=== PATIENT | female | born 2005 | race Caucasian/White ===

== ENCOUNTER 2025-03-11 04:53 | Inpatient (IN) | payer OTHER, MEDICAID, SELFPAY ==
[2025-03-11] VITALS (181 sets, daily range): BP systolic 99–158; BP diastolic 49–127; PULSE 59–163; RESP 14; TEMP 36.2–38.2; O2SAT 94–100; BMI 29.3
--- OUTSIDE RECORDS SUMMARY | 2025-03-11 05:01 | XMS_ITS | Clinical Summary ---
Author Organization [facility] Address [facility] [place] [address] Care Team Providers Care Director Cardiac Name Role Phone Harshal Vaughan MD Primary Care Provider + Allergies No known active allergies Medications No known medications Active Problems Problem Noted Date Diagnosed Date Mood disorder 05/14/2019 Resolved Problems Problem Noted Date Diagnosed Date Resolved Date No known health problems 04/27/201605/2020 Immunizations Immunization Administration Dates Next Due Dtap 2004 Dtap/Hep B/Ipv 11/29/2008, 7,2004,1999 Fluzone (IIV3, Trivalent, 0. 5 ML Prefilled Syringe) 06/25/2024 HPV4 (Gardasil) 08/08/2017,04/26/2016 Hepatitis A Vaccine - 2 Dose 02/15/2010,11/30/19 09 Hepatitis B 06/22/2007, 7,2004,2003 Hepatitis B (Generic Peds) 2004,2004 Hib 2004 Hib Vaccine, Prp-Omp 06/22/2007,2004 Influenza Adult (Generic) 06/03/2023,04/26/2016 MMR (Generic) 11/29/2008,05/18/2000 Menactra 04/26/2016 PFIZER COVID-19 (12+) MRNA, LNP-S, PF, BOGDAN-SUCROSE, 30 MCG/0.3 ML (COMIRNATY) 06/25/2024 Pneumococcal (Prevnar 13) 2004 Pneumococcal (Prevnar 7) 2004 Polio Ipv (Generic) 02/15/2010, 9,06/22/2007,2004,2004 Tdap (Generic) 04/26/2016,04/26/2016 Varicella Vaccine 11/29/2008,05/18/2000 Family History Medical History Relation Comments Drug Abuse Maternal Grandfather Hypertension Maternal Grandfather Alcohol Abuse Maternal Grandmother dysplasia Mother Lung Disease Paternal Grandfather None Neg Hx Relation Status Comments Maternal Grandfather Maternal Grandmother Mother Paternal Grandfather Social History Tobacco Use Types Packs/Day Years Used Date Smoking Tobacco: Never Passive Smoke Exposure: Never Smokeless Tobacco: Never Alcohol Use Standard Drinks/Week Comments No 0 (1 standard drink = 0.6 oz pur e alcohol) AUDIT-C Answer Date Recorded Frequency of Alcohol Consumption Never 03/05/2019 Average Number of Drinks Not on file 019 Frequency of Binge Drinking Not on file 03/2019 PHQ-2 Answer Date Recorded Patient Health Questionnaire-2 Score 0 07/01/2023 Comments No Sex and Gender Information Value Date Recorded Sex Assigned at Not on file Legal Sex Female 11:22 PM CDT Gender Identity Not on file Sexual Orientation Not on file Last Filed Vital Signs Vital Sign Reading Time Taken Comments Blood Pressure 118/76 06/23/2024 7:27 AM ENTERPRISE INTEGRATION ARCHITECT Pulse 105 06/23/2024 7:27 AM ENTERPRISE INTEGRATION ARCHITECT Temperature 36.2 C (97.1 F) 06/23/2024 7:27 AM ENTERPRISE INTEGRATION ARCHITECT Respiratory Rate 18 06/23/2024 7:27 AM ENTERPRISE INTEGRATION ARCHITECT Oxygen Saturation 99% 06/23/2024 7:27 AM ENTERPRISE INTEGRATION ARCHITECT Inhaled Oxygen Concentration - - Weight 50.6 kg (111 lb 9.6 oz) 06/23/2024 7:27 A M ENTERPRISE INTEGRATION ARCHITECT Height 154.9 cm (5' 1) 06/23/2024 7:27 AM ENTERPRISE INTEGRATION ARCHITECT Body Mass Index 21.09 06/23/2024 7:27 AM ENTERPRISE INTEGRATION ARCHITECT Plan of Treatment Health Maintenance Due Date Last Done Comments Annual Physical 03/05/2020 03/05/2019 Meningococcal B Vaccine (1 of 2 - Standard) 2020 Hepatitis C 2022 PHQ-2 (Physician [place]) 07/28/2024 07/01/2023 DTaP, Tdap and Td Vaccines (6 - Td or Tdap) 04/26/2026 04/26/2016, 04/26/2016, 11/29/2008, Additional history exists Pneumococcal Vaccine: Pediatrics (0 to 5 Years) and At-Risk Patients (6 to 49 Years) Aged Out 2004, 2004 No longer eligibl e based on patient's age to complete this topic Hepatitis B Vaccines Completed 11/29/2008, 06/22/2007, 06/22/2007, Additional history exists Meningococcal Vaccine Aged Out 04/26/2016 No alia brian eligible based on patient's age to complete this topic HPV Vaccines Completed 08/08/2017, 04/26/2016 COVID-19 Vaccine Completed 06/25/2024, 02/15/2021 RSV Immunizations Under 20 Months Aged Out No longer eligible based on patient's age to complete this topic Insurance [facility] Care Teams Director Cardiac Relationship Specialty Start Date End Date Harshal Vaughan MD [address] [facility] [address] [place] [address] PCP - General FAMILY PRACTICE 03/03/19
--- OUTSIDE RECORDS SUMMARY | 2025-03-11 05:01 | XMS_ITS | Clinical Summary ---
Author Organization [facility] Address [address] [place] [address] Care Team Providers Care Automobile Repair Service Estimator Name Role Phone Unavailable Primary Care Provider Unavailabl e Social History Tobacco Use Types Packs/Day Years Used Date Smoking Tobacco: Never Assessed Comments Unknown Sex and Gender Information Value Date Recorded Sex Assigned at Not on file Legal Sex Female 10:54 AM CDT Gender Identity Not on file Sexual Orientation Not on file Plan of Treatment Health Maintenance Due Date Last Done Comments Hepatitis C Virus (HCV) Screening 2004 Hepatitis B Immunization (3 of 3 - 3-dose series) 2004 2004, 2004 Meningococcal B Immunization (1 of 2 - Standard) 2020 SARS-COV-2 Immunization ( season) 2024 Influenza Immunization (#1) 2025 04/26/2016 Respiratory Syncytial Virus (RSV) Immunization (Adult) (1 - 1-dose 75+ series) 2079 Pneumococcal Immunization Combined Aged Out 2004 No longer eligible based on patient's age to complete this topic Polio (IPV) Immunization Discontinued 2004 DTaP/Tdap/Td Immunization Discontinued 2015, 2004 Meningococcal Immunization (ACWY) Aged Out 04/26/2016 No longer eligible based on patient's age to complete this topic TdaP Immunization Completed 04/26/2016 Human Papillomavirus (HPV) Immunization Completed 08/08/2017, 04/26/2016 Rotavirus Immunization Aged Out No lo nger eligible based on patient's age to complete this topic
--- OUTSIDE RECORDS SUMMARY | 2025-03-11 05:01 | XMS_ITS | Encounter Summary ---
Author Organization [facility] Address [facility] [place] [address] Care Team Providers Care Market Development Specialist Name Role Phone Hrashal Vaughan MD Primary Care Provider + Encounter Details Date Type Department Care Team (Late st Contact Info) Description 10/28/[address] [facility] Business Office [facility] [place] [address] [place] [address] [place], [facility] Provider Action Needed Social History Tobacco Use Types Packs/Day Years [...] on file Sexual Orientation Not on file documented as of this encounter Plan of Treatment Not on file documented as of this encounter Visit Diagnoses Not on filedocumented in this encounter Care Teams Market Development Specialist Relationship Specialty Start Date End Date Harshal Vaughan MD [address] [facility] [[email or web address]] [address] [place] [id number] PCP - General FAMILY PRACTICE 03/03/19 documented as of this encounter
--- NOTE | 2025-03-11 05:05 | LDADM ---
This patient, Marcia Sparrow, was admitted to Labor/Delivery/Recovery 108 on 03/11/25 at 04:53. Plans for labor, pain management and were discussed with patient. Patient/family oriented to hospital policies and general routines including ID bracelet, bed and alarms, visiting hours, pain management, procedures, bathroom and other care routines, personal items, smoking policy, room service/diet and guest tray routines, infant security routines, and visiting hours. Patient/Family are encouraged to report perceived risks to care and to ask questions if they do not understand what they are told or what they should do. See OBIX for further documentation.
[2025-03-11] MEDS: LACTATED RINGERS 1,000 ML 125 ML IV CONT ×3 (05:46→15:25)
[2025-03-11 05:47] LABS: Hematocrit 31.3 % (37.0-47.0); Hemoglobin 10.2 g/dL (12.0-15.0); Immature Granulocyte Percent A 0.9 % (0-0.5); Lymphocytes Absolute Auto 1.79 K/mm3 (0.9-3.2); Mean Corpuscular HGB Conc 32.6 g/dl (32-36); Mean Corpuscular Hemoglobin 29.9 pg (26-34); Mean Corpuscular Volume 91.8 fl (80-100); Nucleated Red Blood Cells Absolute Auto 0.000 K/mm3 (0.0-0.012); Nucleated Red Blood Cells Perc 0.0 % (0.0-0.2); Platelet Count Result 248 k/mm3 (150-375); Red Blood Count 3.41 M/mm3 (4.2-5.4); White Blood Count 12.9 K/mm3 (4.5-10.0)
[2025-03-11] MEDS: OXYTOCIN 30 UNITS/NS 500 ML 30 UNITS/500 ML BAG 6 UNITS IV CONT (05:47)
--- NOTE | 2025-03-11 06:18 | PM.IMHP ---
H&P: HPI History of Present Illness Date/Time: 03/11/25 06:18 Chief Complaint: Induction of labor at term Narrative: 19-year-old 1 para 0 whose last menstrual period was 06/11/2024, EDC is 03/11/2025, confirmed by early visit and ultrasound presents at 40 weeks gestation for induction of labor. Cervix is favorable. She is negative for group B strep and she passed her diabetic screen. Risks of induction reviewed Review of Systems Review of Systems: All systems reviewed & are unremarkable except as noted in HPI and below PMFSH Family History Family History Other Patient denies significant medical history Social History Social History Substance use: never Spiritual care concerns: No Meds Home Medications and Allergies Home Medications ?Medication ?Instructions ?Recorded ?Confirmed ?Type No Home Medications 02/24/25 02/24/25 History Allergies Allergy/AdvReac Type Severity Reaction Status Date / Time No Known Allergies Allergy Verified 03/11/25 06:06 Vital Signs Vital Signs - 24 hr 03/11/25 05:13 03/11/25 05:18 03/11/25 05:23 Temperature 98 F Pulse Rate Blood Pressure Pulse Oximetry 99 99 99 03/11/25 05:28 03/11/25 05:33 03/11/25 05:38 Temperature Pulse Rate Blood Pressure Pulse Oximetry 99 99 99 03/11/25 05:39 03/11/25 05:43 03/11/25 05:48 Temperature Pulse Rate 81 Blood Pressure 143/86 H Pulse Oximetry 100 100 03/11/25 05:53 03/11/25 05:58 03/11/25 06:01 Temperature Pulse Rate 69 Blood Pressure 121/84 Pulse Oximetry 100 99 03/11/25 06:03 03/11/25 06:08 03/11/25 06:13 Temperature Pulse Rate Blood Pressure Pulse Oximetry 99 98 99 Exam Const: General: cooperative, healthy appearing and comfortable Nutritional Appearance: average body habitus Orientation/consciousness: oriented to person, oriented to place and oriented to time HENMT: Head: normal to inspection Resp: Effort & Inspection: normal respiratory effort Cardio: Rate: regular rate Rhythm: regular rhythm Heart sounds: S1 normal heart sound present and S2 normal heart sound present GI: Inspection: normal to inspection (Gravid soft uterus) : External Female Exam: normal external appearance Speculum Exam - Vagina: normal appearance of the vagina Speculum Exam - Cervix: normal appearance of the cervix (Cervix 3/75/2. AROM with meconium. FHTs reassuring) Assessment and Plan Assessment and plan (1) Term : Code(s): Z34.90 - Encounter for supervision of normal , unspecified, unspecified trimester Status: Acute Plan Proceed with medical induction labor. Meconium fluid will be relayed to the bounty trapper. She is an epidural candidate
--- NOTE | 2025-03-11 06:34 | WPDANESEPP ---
Anes - Eval Pre Procedure Procedure: Labor epidural Date/Time: 03/11/25 06:34 Preop Diagnosis: Abdominal pain with contractions Pre Op Diagnosis: IOL Patient Data Age: 19 Gender: F Height: 1.55 m Weight: 70.5 kg Last Vital Signs Temp 98 F 03/11/25 05:13 Pulse 69 03/11/25 06:01 BP 121/84 03/11/25 06:01 Pulse Ox 99 03/11/25 06:13 O2 Del Method Room Air 03/11/25 06:13 Allergies Allergy/AdvReac Type Severity Reaction Status Date / Time No Known Allergies Allergy Verified 03/11/25 06:06 Home Medications ?Medication ?Instructions ?Recorded ?Confirmed ?Type No Home Medications 02/24/25 02/24/25 History Laboratory Tests 03/11/25 05:14 WBC 12.9 H K/mm3 (4.5-10.0) RBC 3.41 L M/mm3 (4.2-5.4) Hgb 10.2 L g/dL (12.0-15.0) Hct 31.3 L % (37.0-47.0) MCV 91.8 fl (80-100) MCH 29.9 pg (26-34) MCHC 32.6 g/dl (32-36) RDW 12.5 % (11.5-14.5) Plt Count 248 k/mm3 (150-375) MPV 11.1 H fl (7.4-10.4) Immature Gran % (Auto) 0.9 H % (0-0.5) Neut % (Auto) 75.1 H % (45.5-73.1) Lymph % (Auto) 13.9 L % (18.3-44.2) [place] % (Auto) 8.9 H % (2.6-8.5) Eos % (Auto) 0.9 % (0-4.4) Baso % (Auto) 0.3 % (0.2-1.2) Lymph # (Auto) 1.79 K/mm3 (0.9-3.2) [place] # (Auto) 1.2 H K/mm3 (0.1-0.6) Eos # (Auto) 0.1 K/mm3 (0-0.3) Baso # (Auto) 0.0 K/mm3 (0.0-0.1) Abs Immat Gran (auto) 0.11 H K/mm3 (0.00-0.031) Absolute Neuts (auto) 9.7 H K/mm3 (1.3-6.7) Absolute Nucleated RBC 0.000 K/mm3 (0.0-0.012) Nucleated RBC % 0.0 % (0.0-0.2) Blood Type A Positive Antibody Screen Pending : gestational age HCG: positive Patient hx anesthesia problems: none Family hx anesthesia problems: none Results Review: All pre-operative results and documents have been reviewed as part of the pre-operative evaluation. [facility] Past Medical History Medical History (Updated 03/11/25 @ 06:35 by Rosalino Sánchez Jr., CRNA) Overweight (BMI 25.0-29.9) Term Family History Family History Other Patient denies significant medical history Social History Social History Smoking status: Never smoker Substance use: never Lack of Transportation: No Lack of Food: Never True Current Housing: I Have Housing Concerned About Future Housing: No Difficulty Paying Gas/Electric Bills: No Difficulty Paying for Meds: No Currently Unemployed: No Education: High School Diploma/GED Difficulty w/ Childcare or Family Care: No Spiritual care concerns: No Exam Day of Procedure 03/11/25 06:34 Patient weight: overweight
[2025-03-11 06:36] LABS: Syphilis IgG/IgM Antibody Non-Reactive (Nonreactive)
[2025-03-11] MEDS: fentaNYL CITRATE INJ (*CRX) 100 MCG/2 ML VIAL IV PUSH (08:21)
--- NOTE | 2025-03-11 10:52 | PM.OBPNLAB ---
Pain Control Date/time seen: 03/11/25 10:52 Pain control: tolerating well and epidural Pelvic Exam Dilation (cm): 3 Effacement (%): 75
--- NOTE | 2025-03-11 11:42 | PM.OBPNLAB ---
Pain Control Date/time seen: 03/11/25 11:42 Pain control: tolerating well and epidural Pelvic Exam Dilation (cm): 3 Effacement (%): 90 station: -1 Amniotic membrane status: Leaking Comments: IUPC placed Contractions Monitor mode: Internal
[2025-03-11] MEDS: ONDANSETRON INJ 4 MG/2 ML VIAL IV PUSH (17:05)
--- NOTE | 2025-03-11 18:18 | PM.OBPRVD ---
OB - Vaginal Delivery Note Procedure Delivery date: 03/11/25 Events: Elective Induction of Labor Induction method: AROM Delivery augmentation: Pitocin Delivery monitor: External FHT and Internal Uterine Route of delivery: Episiotomy description: None Laceration Description: Perineal - 2nd Degree Delivery repair: vicryl Specimen: No Quantitative Blood Loss (ml): 62 Anesthesia type: Epidural Disposition: Floor Complications: No immediate complications Narrative: Patient was admitted for induction of labor at 40 weeks gestation due to social reasons. Artificial rupture membranes performed in the a.m. and meconium fluid was noted. Pediatricians were made aware she had epidural anesthesia placed when she was complete she pushed delivered the head spontaneously in the DONI position nuchal cord checked was checked and noted be tight was clamped x2 cut and relieved anterior posterior shoulder delivered spontaneously. Twenty of Pitocin placed IV to help firm the uterus after inspecting the vagina a second-degree midline laceration was noted was closed with layered 3-0 Vicryl QBL was 62cc all sponge, needle, instrument counts were correct. There were no immediate complications [place] Baby Date of : 03/11/25 Time of : 18:05 Gestational Age by Date: 40 Infant gender: Female Weight (pounds): 6 Weight (ounces): 7 presentation: vertex position: Right Occiput Anterior Placenta delivery description: Spontaneous Cord Vessel Description: 3 Vessels, Nuchal Cord, Tight, Clamped/Cut and Other score one minute: 8 score five minutes: 9
--- NOTE | 2025-03-11 18:23 | P.DS_ITS ---
DS: Admitting Diagnosis Discharge Date 03/13/2025 Admitting Diagnosis Term DS: Discharge Diagnosis Discharge Diagnosis (1) Term : Code(s): Z34.90 - Encounter for supervision of normal , unspecified, unspecified trimester Status: Acute DS: Summary Hospital Course Reason for hospitalization: Patient was admitted for induction of labor and underwent spontaneous vaginal delivery at 6:05 p.m. on 03/11/2025 Hospital Course: Patient's hospital course unremarkable. She remained afebrile. She was up, voiding without difficulty, eating diet, ambulating, Time Spent with Patient Time attestation: Total time spent providing and/or coordinating discharge services: Exam Const: General: cooperative, healthy appearing and comfortable Nutritional Appearance: average body habitus Orientation/consciousness: oriented to person, oriented to place and oriented to time HENMT: Head: normal to inspection Resp: Effort & Inspection: normal respiratory effort Cardio: Rate: regular rate Rhythm: regular rhythm Heart sounds: S1 normal heart sound present and S2 normal heart sound present GI: Inspection: normal to inspection (Gravid soft uterus) : External Female Exam: normal external appearance Speculum Exam - Va blaire: normal appearance of the vagina Speculum Exam - Cervix: normal appearance of the cervix (Cervix 3/75/2. AROM with meconium. FHTs reassuring) DS: Data Data Completed and Pending Labs on day of discharge: Labs from last 24 hours 03/11/25 05:14 WBC 12.9 H RBC 3.41 L Hgb 10.2 L Hct 31.3 L MCV 91.8 MCH 29.9 MCHC 32.6 RDW 12.5 Plt Count 248 MPV 11.1 H Immature Gran % (Auto) 0.9 H Neut % (Auto) 75.1 H Lymph % (Auto) 13.9 L [place] % (Auto) 8.9 H Eos % (Auto) 0.9 Baso % (Auto) 0.3 Lymph # (Auto) 1.79 [place] # (Auto) 1.2 H Eos # (Auto) 0.1 Baso # (Auto) 0.0 Abs Immat Gran (auto) 0.11 H Absolute Neuts (auto) 9.7 H Absolute Nucleated RBC 0.000 Nucleated RBC % 0.0 Syphilis IgG/IgM Ab Non-reactive Blood Type A Positive Antibody Screen Negative Discharge Plan Discharge Attending physician on discharge: Priyank Horton Discharging Clinician: Priyank Horton Patient Disposition: Home Activity: may shower, no straining and pelvic rest Diet: heart healthy Wound Care Instructions: follow printed instructions Patient Instructions: Antibiotic Form Patient Language: Dominican Stand Alone Forms: General Discharge Information Follow-up/Referrals: Priyank Horton MD [Physician] - Discharge Medications: Continued No Home Medications Date of admission: 03/11/25 04:53 Primary Care Provider: RADHACARSON Admitting Provider: Priyank Horton Attending physician on admission: Priyank Horton Condition: Stable
[2025-03-11] MEDS: OXYTOCIN 30 UNITS/NS 500 ML 30 UNITS/500 ML BAG 125 UNITS IV CONT (18:46)
--- NOTE | 2025-03-11 21:29 | OBPPTRN ---
2030-Patient transferred to post room #290 via wheelchair. Support person present. Oriented to unit, room, information board, rooming in, admission packet and security measures. Patient verbalizes understanding.
[2025-03-11] MEDS: IBUPROFEN 600 MG TABLET PO (22:50)
[2025-03-12 02:47] VITALS: BP 132/86; PULSE 81; RESP 14; TEMP 37.2; O2SAT 100
[2025-03-12 05:27] VITALS: BP 119/76; PULSE 82; RESP 14; TEMP 36.6; O2SAT 100
[2025-03-12 05:56] LABS: Hematocrit 26.2 % (37.0-47.0); Hemoglobin 8.5 g/dL (12.0-15.0)
--- NOTE | 2025-03-12 06:50 | PM.OBPNVD ---
OB - PN: Subj Subjective Date/time seen: 03/12/25 06:50 Patient comments: no complaints, pain well controlled and tolerating diet [place] baby status: doing well OB - PN: Obj Data Labs 03/12/25 05:11 Labs: Laboratory Results - last 24 hr 03/12/25 05:11 Hgb 8.5 L Hct 26.2 L OB - PN A/P Assessment and Plan (1) Term : Code(s): Z34.90 - Encounter for supervision of normal , unspecified, unspecified trimester Status: Acute Plan start iron Time Spent With Patient Time: Total time spent is greater than 50% in coordination of care (as documented) at patient's floor/unit and/or counseling patient: Review of Systems Review of Systems: All systems reviewed & are unremarkable except as noted in HPI and below Exam Const: General: cooperative, healthy appearing and comfortable Nutritional Appearance: average body habitus Orientation/consciousness: oriented to person, oriented to place and oriented to time HENMT: Head: normal to inspection Resp: Effort & Inspection: normal respiratory effort Cardio: Rate: regular rate Rhythm: regular rhythm Heart sounds: S1 normal heart sound present and S2 normal heart sound present GI: Inspection: normal to inspection (Gravid soft uterus) : External Female Exam: normal external appearance Speculum Exam - Vagina: normal appearance of the vagina Speculum Exam - Cervix: normal appearance of the cervix (Cervix 3/75/2. AROM with meconium. FHTs reassuring)
[2025-03-12 08:28] VITALS: BP 120/69; PULSE 76; RESP 18; TEMP 36.7; O2SAT 99
--- NOTE | 2025-03-12 10:06 | WPDANLDPN2 ---
Anes-Prog Note L&D Date/Time: 03/12/25 10:06 Comfortable throughout: labor and delivery Neuraxial method: epidural Epidural/Spinal procedure site: clean & non-tender Neuro status: Neuro function grossly intact. Cardiovascular status: normal Respiratory status: normal Airway patency: baseline Mental status: baseline Post-Op hydration status: normal Vital Signs: Last Vital Signs Temp 98.0 F 03/12/25 08:28 Pulse 76 03/12/25 08:28 Resp 18 03/12/25 08:28 BP 120/69 03/12/25 08:28 Pulse Ox 99 03/12/25 08:28 O2 Del Method Room Air 03/11/25 06:57 Pain score (VAS): 0 I/O: Intake & Output 03/11/25 03/12/25 03/12/25 23:59 07:59 15:59 Intake Total 600 Output Total 212 Balance 388 Post-procedural complaints: none Patient feedback: Patient satisfied with anesthetic care.
[2025-03-12] MEDS: MULTIVIT/MIN/PREN/FOL AC/IRON TABLET 1 TAB PO (12:00)
[2025-03-12] MEDS: IBUPROFEN 600 MG TABLET PO (12:00)
[2025-03-12] MEDS: DOCUSATE SODIUM 100 MG CAPSULE PO ×2 (12:00→17:29)
[2025-03-12 16:15] VITALS: BP 118/66; PULSE 76; RESP 18; TEMP 36.4; O2SAT 99
[2025-03-12 18:20] VITALS: BP 129/79; PULSE 81; RESP 18; TEMP 36.6; O2SAT 98
[2025-03-13] MEDS: IBUPROFEN 600 MG TABLET PO (00:34)
--- NOTE | 2025-03-13 07:39 | P.PNOB_ITS ---
OB - PN: Subj Subjective Date/time seen: 03/13/25 07:39 Patient comments: no complaints, pain well controlled and tolerating diet [place] baby status: doing well OB - PN: Obj Data Labs 03/12/25 05:11 OB - PN A/P Assessment and Plan (1) Term : Code(s): Z34.90 - Encounter for supervision of normal , unspecified, unspecified trimester Status: Acute Plan home Time Spent With Patient Time: Total time spent is greater than 50% in coordination of care (as documented) at patient's floor/unit and/or counseling patient: Review of Systems 2 Review of Systems: All systems reviewed & are unremarkable except as noted in HPI and below Exam 2 Const: General: cooperative, healthy appearing and comfortable Nutritional Appearance: average body habitus Orientation/consciousness: oriented to person, oriented to place and oriented to time HENMT: Head: normal to inspection Resp: Effort & Inspection: normal respiratory effort Cardio: Rate: regular rate Rhythm: regular rhythm Heart sounds: S1 normal heart sound present and S2 normal heart sound present GI: Inspection: normal to inspection (Gravid soft uterus) : External Female Exam: normal external appearance Speculum Exam - Vagina: normal appearance of the vagina Speculum Exam - Cervix: normal appearance of the cervix (Cervix 3/75/2. AROM with meconium. FHTs reassuring)
[2025-03-13 08:30] VITALS: BP 116/93; PULSE 72; RESP 18; TEMP 36.3
[2025-03-13] MEDS: MULTIVIT/MIN/PREN/FOL AC/IRON TABLET 1 TAB PO (10:32)
[2025-03-13] MEDS: DOCUSATE SODIUM 100 MG CAPSULE PO (10:32)
--- NOTE | 2025-03-13 11:00 | PC.NURSE ---
Instructed the patient about viewing the discharge video Mother & Baby Care, The First Two Weeks. Patient was given the opportunity and encouraged to ask questions. Patient has been given the mother/baby guide for home reference.
[2025-03-14 08:26] VITALS: BP 135/79; PULSE 100; RESP 18; TEMP 37; O2SAT 100
== END 2025-03-13 11:03 | disposition home or self-care (01) | DRG 806 ==
LOC: ANHLDR 18:25 → ANHOB2 20:31
PROVIDERS: Admitting Provider Obstetrics & Gynecology; PCP Family Medicine; Visit Provider Obstetrics & Gynecology
DX: O69.1XX0 Labor and delivery complicated by cord around neck, with compression, not applicable or unspecified (principal); O75.2 Pyrexia during labor, not elsewhere classified; Z37.0 Single live birth; O70.1 Second degree perineal laceration during delivery; Z3A.40 40 weeks gestation of pregnancy; O77.0 Labor and delivery complicated by meconium in amniotic fluid
CPT/HCPCS: 36415; 85014; 85018; 85025; 86593; 86850; 86900; 86901; A9270; J2405; J2590; J2795; J3010; J7120